=== PATIENT | female | born 1925 | race Caucasian/White ===

== ENCOUNTER 2017-04-19 22:10 | Emergency (ER) | payer OTHER ==
[~2017-04-19] VITALS: Ht 157.5 cm; Wt 47.2 kg
--- NOTE | ~2017-04-19 | CT52 ---
[facility] A Service of [facility] RADIOLOGY TEXT RESULTS PATIENT: SEB PRESTON LOCATION: [facility] : [birth year] UNIT #: [id number] AGE: [address]: Ludin Jackson MD SEX: F ORDER DR: [id number] [facility] [address] [place], [place] [address] [id number] E MR#: [id number] Acc #: [id number] NAME: SEB PRESTON : 1925 SEX: F STUDY DATE/TIME: 04/20/2017 0:58 UNIT: [facility] ROOM: STUDY DESCRIPTION: CT Cervical Spine Wo Cont Attending Physician: Ludin Jackson M.D. Ordering Physician: Ludin Jackson M.D. Primary Care Physician: No Primary Care Physician MEDICAL IMAGING REPORT This report is preliminary unless electronic signature is present EXAM CT cervical spine without contrast. INDICATIONS Neck pain after a fall today. PROCEDURE Unenhanced CT cervical spine. This CT exam was performed with one or more of the following radiation dose reduction techniques: automatic exposure control, adjustment of mA and/or kV according to patient size, and iterative reconstruction. COMPARISON None. FINDINGS Multilevel degenerative disc disease. Overall vertebral body height and alignment is preserved. Craniocervical junction and the dens are intact. Multilevel facet arthrosis. No fracture. Varying degrees of multilevel central canal neural foraminal narrowing. Emphysema. IMPRESSION 1. Multilevel degenerative change. No acute findings. 2. Not mentioned above is atherosclerotic calcification in both carotid bulbs, left greater than right. Dictated by... Alfa Smallwood M.D. THIS IS AN ELECTRONICALLY VERIFIED REPORT Alfa Smallwood M.D. at 04/20/2017 10:02 PM JENNIE/hay [facility] A Service [facility] RADIOLOGY TEXT RESULTS PATIENT: SEB PRESTON LOCATION: [facility] : [birth year] UNIT #: [id number] AGE: [address]: Ludin Jackson MD SEX: F ORDER DR: TD: 04/20/2017 19:26 JOB #: [id number] MEDICAL IMAGING REPORT Page 1 of 1 COPY
--- NOTE | ~2017-04-19 | CR243 ---
[facility] A Service of [facility] RADIOLOGY TEXT RESULTS PATIENT: SEB PRESTON LOCATION: [facility] : [birth year] UNIT #: [id number] AGE: [address]: Ludin Jackson MD SEX: F ORDER DR: [id number] [facility] [address] [place], [place] [address] [id number] E MR#: [id number] Acc #: [id number] NAME: SEB PRESTON : 1925 SEX: F STUDY DATE/TIME: 04/20/2017 0:15 UNIT: [facility] ROOM: STUDY DESCRIPTION: CR Thoracic Spine 3 Views Attending Physician: Ludin Jackson M.D. Ordering Physician: Ludin Jackson M.D. Primary Care Physician: No Primary Care Physician MEDICAL IMAGING REPORT This report is preliminary unless electronic signature is present EXAM Thoracic spine series. INDICATIONS Back pain after fall today. PROCEDURE Four views of the thoracic spine. COMPARISON None. FINDINGS There is significant dextrocurvature at the thoracolumbar junction. Thoracic vertebral bodies are very difficult to evaluate. Apparent lucency of a lower thoracic vertebral body, possibly T12. It is not well seen on the lateral view. Diffuse atherosclerotic calcification throughout the thoracic and visualized portions of abdominal aorta. IMPRESSION 1. Significant scoliotic curvature and degenerative change. 2. Thoracic bodies are difficult to evaluate. There appears to be some lucency in the lower thoracic vertebral body possibly T12 but is of indeterminate etiology. Dictated by... Alfa Smallwood M.D. THIS IS AN ELECTRONICALLY VERIFIED REPORT Alfa Smallwood M.D. at 04/20/2017 10:02 PM JENNIE/hay [facility] A Service [facility] RADIOLOGY TEXT RESULTS PATIENT: SEB PRESTON LOCATION: [facility] : [birth year] UNIT #: [id number] AGE: [address]: Ludin Jackson MD SEX: F ORDER DR: TD: 04/20/2017 19:15 JOB #: [id number] MEDICAL IMAGING REPORT Page 1 of 1 COPY
--- NOTE | ~2017-04-19 | CR142 ---
[facility] A Service of [facility] RADIOLOGY TEXT RESULTS PATIENT: SEB PRESTON LOCATION: [facility] : [birth year] UNIT #: [id number] AGE: [address]: Ludin Jackson MD SEX: F ORDER DR: [id number] [facility] [address] [place], [place] [address] [id number] E MR#: [id number] Acc #: [id number] NAME: SEB PRESTON : 1925 SEX: F STUDY DATE/TIME: 04/20/2017 0:11 UNIT: [facility] ROOM: STUDY DESCRIPTION: CR Hand Min 3 Views Rt Attending Physician: Ludin Jackson M.D. Ordering Physician: Ludin Jackson M.D. Primary Care Physician: Primary Care Physician No MEDICAL IMAGING REPORT This report is preliminary unless electronic signature is present EXAM Right hand series INDICATIONS Right hand pain after a fall today. PROCEDURE 3 views of the right hand COMPARISON None FINDINGS Suboptimal positioning but the best obtainable secondary to patient confusion. Moderate multifocal arthrosis. No visible fracture or dislocation. IMPRESSION 1. No appreciable acute finding. 2. 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 Dictated by... Alfa Smallwood M.D. THIS IS AN ELECTRONICALLY VERIFIED REPORT Alfa Smallwood M.D. at 04/20/2017 10:02 PM EED/to TD: 04/20/2017 19:03 JOB #: [id number] MEDICAL IMAGING REPORT [facility] A Service of [facility] RADIOLOGY TEXT RESULTS PATIENT: SEB PRESTON LOCATION: [facility] : [birth year] UNIT #: [id number] AGE: [address]: Ludin Jackson MD SEX: F ORDER DR: Page 1 of 1 COPY
--- NOTE | ~2017-04-19 | CT71 ---
[facility] A Service of [facility] RADIOLOGY TEXT RESULTS PATIENT: SEB PRESTON LOCATION: [facility] : [birth year] UNIT #: [id number] AGE: [address]: Ludin Jackson MD SEX: F ORDER DR: [id number] [place] [id number] [facility]. [place], [place] [address] [id number] E MR#: [id number] Acc #: [id number] NAME: SEB PRESTON : 1925 SEX: F STUDY DATE/TIME: 04/20/2017 0:55 UNIT: [facility] ROOM: STUDY DESCRIPTION: CT Head Wo Contrast Attending Physician: Ludin Jackson M.D. Ordering Physician: Ludin Jackson M.D. Primary Care Physician: No Primary Care Physician MEDICAL IMAGING REPORT This report is preliminary unless electronic signature is present EXAM CT head without contrast. INDICATIONS Headache after a fall today. PROCEDURE Unenhanced CT of the head. This CT exam was performed with one or more of the following radiation dose reduction techniques: automatic exposure control, adjustment of mA and/or kV according to patient size, and iterative reconstruction. COMPARISON 04/12/2016 FINDINGS Generalized volume loss, chronic small vessel ischemic change. No acute hemorrhage, midline shift, extraaxial fluid collection or hydrocephalus. No depressed calvarial fracture. IMPRESSION 1. No acute intracranial findings. 2. Volume loss and sequela of chronic small vessel ischemic change. Dictated by... Alfa Smallwood M.D. THIS IS AN ELECTRONICALLY VERIFIED REPORT Alfa Smallwood M.D. at 04/20/2017 10:02 PM JENNIE/hay TD: 04/20/2017 19:25 [facility] A Service [facility] RADIOLOGY TEXT RESULTS PATIENT: SEB PRESTON LOCATION: [facility] : [birth year] UNIT #: [id number] AGE: [address]: Ludin Jackson MD SEX: F ORDER : MELITA #: [id number] MEDICAL IMAGING REPORT Page 1 of 1 COPY
[~2017-04-19 22:10] MED LIST: ADVAIR 250-501 EAC1 IH; ADVAIR 250-501 EACH IH; ADVAIR 250-501 EACH INH; ADVAIR 2501 DISK W/D PO; ALB/IPRATROPIUM/1 E1 INH; ALBUTEROL 0.5ML INH; ALBUTEROL MININEB NEB; ALBUTEROL17 G1 PO; ALTACE PO; AMIODARONE HCL100 MG PO; AMIODARONE PO; AMLODIPINE BESY10 MG PO; ASPIRIN; ASPIRIN EC81 M1 PO; ASPIRIN81 MG PO; COLACE PO; COLACE50 MG PO; COMPLETE MULTI1 EACH PO; CORDARONE200 M1 PO; COREG; COREG PO; DIOVAN320 MG PO; DIOVAN80 M1 DOB; DOCUSATE SODIU100 MG PO; FLOMAX0.4 M1 DOB; FUROSEMIDE40 MG PO; IMDUR; IMDUR PO; IPRAT-ALBUT 0.5-3 ML INH; IRON 21/7 TABL1 EACH PO; IRON1 TAB PO; METOPROLOL TAR25 MG PO; MOBIC PO; MOBIC15 MG PO; MULTI VITAMIN1 EACH PO; MULTI-VITAMIN1 EAC1 PO; NAMENDA XR1 EACH PO; NORVASC PO; PACERONE PO; SEROQUEL PO; SPIRIVA18 MCG INH; SYMBICORT INH; TENORMIN25 MG PO; TRAMADOL HCL50 M1 PO; TRAMADOL HCL50 M2 PO; TUMS; VISTARIL PO; VITAL-D RX TABL1 TAB PO; XARELTO15 MG PO; ZEGERID40 MG/PKT PO; ZITHROMAX1 G/PKT PO; [UNRECOGNIZED DRUG - OTHER] PO; [UNRECOGNIZED DRUG - REMARK] PO
== END 2017-04-20 04:58 | disposition home or self-care (01) ==
LOC: CED 22:10
DX: S61.411A Laceration without foreign body of right hand, initial encounter (principal); S16.1XXA Strain of muscle, fascia and tendon at neck level, initial encounter; S29.012A Strain of muscle and tendon of back wall of thorax, initial encounter; Z23 Encounter for immunization; I10 Essential (primary) hypertension; J44.9 Chronic obstructive pulmonary disease, unspecified; F03.90 Unspecified dementia, unspecified severity, without behavioral disturbance, psychotic disturbance, mood disturbance, and anxiety; W19.XXXA Unspecified fall, initial encounter; Y92.129 Unspecified place in nursing home as the place of occurrence of the external cause
CPT/HCPCS: 12001; 70450; 72072; 72125; 73130; 90471; 90715; 99284